=== PATIENT | male | born 1980 | race Caucasian/White ===

== ENCOUNTER 2024-11-19 19:01 | Emergency (ER) | payer MEDICAID ==
[~2024-11-19] VITALS: Ht 154.9 cm; Wt 80.9 kg
[2024-11-19] MEDS ORDERED: NALO4SPR BOTHNARES (21:59)
--- NOTE | 2024-11-19 22:03 | Physician Documentation ---
History of Present Illness ~ Chief Complaint: Ingestion Error Stated Complaint: LOOSE STOOLS Time Seen by MD: 21:58 Source: patient Mode of Arrival: Ambulatory Exam Limitations: no limitations HPI Nicholas is a 44-year-old male presenting to our emergency department with complaints of receiving fentanyl last night and someone poisoning him with some rubber cement, super glue and hydrogen peroxide. He reports to being homeless and is wanting to attend rehab and seeking medical clearance. He has no physical medical complaints. Denies HI and SI. He is also a risk for requesting some Narcan to take home. Medication Reconciliation Allergies: Coded Allergies: No Known Allergies (Unverified , 11/19/24) Scheduled PRN Naloxone HCl (Narcan), 1 SPRAYS BOTHNARES ONCE PRN for sedation Review of Systems All Other Systems at this time: Reviewed and Negative Physical Exam Vital Signs: RN Vital Signs have been reviewed: Yes, Temperature: 98.6, Source: Temporal, Heart Rate: 62, Respiratory Rate: 12, BP: 120/80, Pulse Oximetry: 96, Weight: 80.900 Oxygen Flow Rate: 0 Pulse Oximetry Reflects: adequate oxygenation Physical Exam General: Alert, no apparent distress. HEENT: PERRL, EOMI, no injection, moist mucous membranes. Neck: Full range of motion. Respiratory: Lungs clear, no respiratory distress. Chest: No accessory muscle use. Cardiovascular: Regular rate and rhythm, no murmurs. Gastrointestinal: Soft, nontender, nondistended. Bowels sounds present. Extremities: Normal range of motion, no deformity. Neurologic: Oriented x4. Psychiatric: Normal mood and affect. Skin: Normal color, warm and dry. No edema, no ecchymosis. Progress Results/Orders Reviewed/noted all lab results: Yes Results/Orders Vital Signs 11/19/24 11/19/24 11/19/24 11/19/24 19:31 19:51 20:40 22:07 Temp 98.6 98.6 Pulse 81 62 72 Resp 16 10 12 10 B/P (MAP) 124/75 120/80 (93) 126/74 Pulse Ox 98 96 96 O2 Flow Rate 0 Medical Decision Making Findings Nicholas is a 44-year-old male who received some fentanyl last night and possible other substances early this morning. He is currently homeless and is requesting rehab services and medical clearance. He denies any HI or SI. He is also requesting some Narcan to take with him and this was provided. Gave prescription for Narcan as well as 2 intranasal bottles to take home tonight. Advised to avoid all illicit substances including fentanyl. Given community services paper with rehab information on it for him to contact them in the morning. He agrees with this plan. He should follow up with his primary care provider or the [facility] in the next 3 days. He should return back here for any new or worsening symptoms. Differential Dx:Considerations: Include: Anxiety, Depression, Drug Overdose- Intentional Departure Disposition: 01 HOME / SELF CARE / HOMELESS Impression: Primary Impression: Poisoning by opiate or related narcotic Additional Impression: Addiction to drug Condition: Stable Discharge Instructions: Opioid Overdose Additional Instructions: Please refrain from using fentanyl or other illicit substances. We provided you with two nasal bottles of Narcan to use in the case of an opiate overdose. Also written a prescription to your pharmacy for Narcan as well. You have been medically cleared to attend any rehab program. Community resource sheet has been provided with you as well with names and phone numbers and addresses of local rehab programs. Return here for any new worsening symptoms. Follow up with your primary care provider in the next 3 days. Referrals: NO PRIMARY CARE PROVIDER (PCP) Prescriptions Naloxone HCl (Narcan) 4 Mg/Actuation [place] 1 SPRAYS BOTHNARES ONCE PRN for sedation for 1 Day, #3 EA 0 Refills Prov: TOBIN JIMÉNEZ 11/19/24 Education Educated: Patient Educated regarding: diagnosis, treatment, prognosis, need for follow up Signature Scribe Signature: . Attestation: Scribed for Tobin Jiménez by Tobin Maguire NP . 11/20/24 01:20 TOBIN JIMÉNEZ November 19, 2024 22:03
[2024-11-19 22:07] VITALS: BP 126/74; PULSE 72; RESP 10; TEMP 98.6; O2SAT 96
== END 2024-11-19 22:13 | disposition home or self-care (01) ==
LOC: ER 19:02
DX: T40.601A Poisoning by unspecified narcotics, accidental (unintentional), initial encounter (principal); F11.20 Opioid dependence, uncomplicated; Z59.00 Homelessness unspecified; Y92.89 Other specified places as the place of occurrence of the external cause
CPT/HCPCS: 99284

== ENCOUNTER 2024-11-23 19:43 | Emergency (ER) | payer MEDICAID ==
[~2024-11-23] VITALS: Ht 167.6 cm; Wt 65.0 kg
[~2024-11-23 19:43] MED LIST: NALO4SPR BOTHNARES
[2024-11-23 19:56] VITALS: TEMP 98.6
--- NOTE | 2024-11-23 21:46 | Physician Documentation ---
History of Present Illness ~ Chief Complaint: Psych Stated Complaint: EVAL Time Seen by MD: 21:45 HPI Patient presents to the emergency room for evaluation of depression. Denies SI however he is feeling in his wits end. He was seen here a few days ago was given paperwork regarding psychiatric resources and he states he did try to contact them but states there was nothing they could do. Medication Reconciliation Allergies: Coded Allergies: No Known Allergies (Unverified , 11/23/24) Scheduled PRN Naloxone HCl (Narcan), 1 SPRAYS BOTHNARES ONCE PRN for sedation Review of Systems ROS All review of systems negative except as per HPI Physical Exam Vital Signs: Temperature: 98.6, Source: Temporal, Heart Rate: 98, Respiratory Rate: 15, BP: 157/92, Pulse Oximetry: 99, Weight: 65.000 Physical Exam General: Patient is sleeping, easily arousable, decreased affect. Cooperative Head: Normocephalic and atraumatic. Eyes: Conjunctival normal. EOMI. PERRL. ENT: Mucous membranes moist. Neck: Supple, trachea is midline. Chest: Clear to auscultation bilaterally without rales, rhonchi, or wheezes. There is no accessory muscle use or retractions. Cardiac: RRR without murmurs, gallops, or rubs. Psych: Decreased affect, poor eye contact, dejected Progress Results/Orders Results/Orders Orders - MARK BARBOSA MD Urinalysis (11/23/24 21:58) Drug Screen, Urine (11/23/24 21:58) Med Rec (11/23/24 21:58) 1799.11 (11/23/24 21:58) Close Observation Level (11/23/24 21:58) Covid19 Binax Poc Result Entry (11/23/24 21:58) Substance Use Navigator (11/23/24 21:58) Regular Diet (11/24/24 Breakfast) Completed Orders - MARK BARBOSA MD Cbc/Diff (11/23/24 21:58) Ethanol (11/23/24 21:58) TSH (11/23/24 21:58) BMP (11/23/24 21:58) Vital Signs 11/23/24 19:56 Temp 98.6 Pulse 98 Resp 15 B/P (MAP) 157/92 Pulse Ox 99 Laboratory Tests Test 11/23/24 22:05 White Blood Count 9.0 Red Blood Count 4.76 Hemoglobin 13.5 L Hematocrit 40.0 L Mean Corpuscular Volume 84.0 Mean Corpuscular Hemoglobin 28.2 Mean Corpuscular Hemoglobin Concent 33.6 Red Cell Distribution Width 14.8 H Platelet Count 364 Mean Platelet Volume 7.4 Neutrophils (%) (Auto) 47.0 Lymphocytes (%) (Auto) 38.5 Monocytes (%) (Auto) 10.6 Eosinophils (%) (Auto) 3.5 Basophils (%) (Auto) 0.4 Neutrophils # (Auto) 4.2 Lymphocytes # (Auto) 3.5 Monocytes # (Auto) 1.0 H Eosinophils # (Auto) 0.3 Basophils # (Auto) 0.0 CBC Comment Sodium Level 145 Potassium Level 3.7 Chloride Level 109 H Carbon Dioxide Level 29.9 Anion Gap 6 L Blood Urea Nitrogen 19 H Creatinine 1.17 H Estimated GFR/1.73 m2 68 BUN/Creatinine Ratio 16.2 Glucose Level 109 H Calcium Level 8.6 Albumin 3.2 L Thyroid Stimulating Hormone (TSH) 1.99 Chemistry Comments Ethyl Alcohol Level < 10 Medical Decision Making Findings Patient presents to the emergency room with depression as per HPI. Differentials include but are not limited to suicidal ideation, depression, electrolyte disturbances, thyroid disorder therefore emergent labs ordered which were reassuring and patient is medically cleared for mental health evaluation. Departure Disposition: 30 STILL A PATIENT Impression: Primary Impression: Gravely disabled Additional Impression: Depression Condition: Fair Referrals: NO PRIMARY CARE PROVIDER (PCP) Signature Scribe Signature: No scribe Attestation: The note accurately reflects work and decisions made by me.Mark Barbosa MD 11/23/24 23:13 MARK BARBOSA MD November 23, 2024 21:46
[2024-11-23 22:19] LABS: BASOPHILS % (AUTO) 0.4 % (0-1); EOSINOPHILS # (AUTO) 0.3 X10'3 (0-0.9); EOSINOPHILS % (AUTO) 3.5 % (0-6); HEMOGLOBIN 13.5 g/dl (14.0-17.9); LYMPHOCYTES # (AUTO) 3.5 X10'3 (1.1-4.8); LYMPHOCYTES % (AUTO) 38.5 % (21-51); MEAN CORPUSCULAR HEMOGLOBIN 28.2 PG (27.0-31.0); MEAN CORPUSCULAR HGB CONC 33.6 g/dL (33.0-36.5); MEAN PLATELET VOLUME 7.4 FL (7.4-10.4); MONOCYTES % (AUTO) 10.6 % (2-12); NEUTROPHILS # (AUTO) 4.2 X10'3 (1.8-7.7); PLATELET COUNT 364 X10'3 (140-440); RED BLOOD COUNT 4.76 X10'6 (4.70-6.10); RED CELL DISTRIBUTION WIDTH 14.8 % (11.5-14.5)
[2024-11-23 22:41] LABS: ALBUMIN 3.2 G/DL (3.4-5.0); ANION GAP 6 (8-16); BLOOD UREA NITROGEN 19 MG/DL (7-18); BUN/CREATININE RATIO 16.2 (10.0-20.0); CALCIUM 8.6 MG/DL (8.5-10.1); CHLORIDE 109 MMOL/L (99-107); CREATININE 1.17 MG/DL (0.60-1.10); ETHANOL < 10 MG/DL (<10); GLUCOSE 109 MG/DL (70-104); POTASSIUM 3.7 MMOL/L (3.5-5.1); SODIUM 145 MMOL/L (135-145); THYROID STIMULATING HORMONE 1.99 ulU/ml (0.34-4.50); TOTAL CARBON DIOXIDE 29.9 MMOL/L (24-32); eCRCL 73 ML/MIN; eGFR 68 ML/MIN
[2024-11-24 03:06] VITALS: BP 110/65; PULSE 64; O2SAT 99
[2024-11-24 04:47] VITALS: RESP 14
[2024-11-24 08:44] LABS: BILIRUBIN,URINE NEGATIVE (Neg); CLARITY,URINE CLEAR (Clear); COLOR,URINE YELLOW (Yellow); GLUCOSE, URINE NEGATIVE (Neg); KETONES,URINE NEGATIVE (Neg); LEUKOCYTE ESTERASE ,URINE NEGATIVE (Neg); NITRITES, URINE NEGATIVE (Neg); OCCULT BLOOD,URINE NEGATIVE (Neg); PROTEIN,URINE NEGATIVE (Neg); UA COLLECTION TYPE CLN CATCH MIDSTREAM; UROBILINOGEN,URINE 0.2 E.U/dL (0.2-1.0)
[2024-11-24 08:56] LABS: URINE AMPHETAMINE SCREEN POSITIVE (Neg); URINE BARBITUATE SCREEN NEGATIVE (Neg); URINE BENZODIAZEPINES SCREEN NEGATIVE (Neg); URINE CANNABINOID SCREEN POSITIVE (Neg); URINE COCAINE SCREEN NEGATIVE (Neg); URINE METHADONE SCREEN NEGATIVE (Neg); URINE OPIATE SCREEN NEGATIVE (Neg); URINE PHENCYCLIDINE SCREEN NEGATIVE (Neg)
== END 2024-11-24 18:44 | disposition home or self-care (01) ==
LOC: ER 19:45
DX: F32.A Depression, unspecified (principal); F79 Unspecified intellectual disabilities; Z20.822 Contact with and (suspected) exposure to COVID-19; Z79.899 Other long term (current) drug therapy
CPT/HCPCS: 36415; 80048; 80305; 80320; 81003; 84443; 85025; 87811; 99284

== ENCOUNTER 2024-12-10 17:32 | Emergency (ER) | payer MEDICAID ==
[~2024-12-10] VITALS: Ht 165.1 cm; Wt 93.0 kg
--- NOTE | 2024-12-10 17:39 | Physician Documentation ---
History of Present Illness ~ Stated Complaint: HEAT EXHAUSTION Time Seen by MD: 18:11 OK to notify your PCP?: Yes Source: patient Mode of Arrival: POV Exam Limitations: no limitations HPI 44-year-old male brought in by EMS for possible heat exhaustion after walking from the homeless retirement called admission to our [facility] in 100 degree Fahrenheit heat. He reports having nausea and was given 8 mg p.o. Zofran and ice water by EMS. He reports relief from his nausea after the Zofran administration. Additional note by Tom Henson DO: I took over the care of this patient from previous physician. I reviewed any previous notes available, obtain my own history, review of systems and physical examination was performed by myself. As noted above, the gentleman confirms the story. He is 44 years of age, currently homeless, he walked from the homeless retirement to [place] and back. That he was exposed to elements and the mother today had a T- max of 107. He did not drink any fluids. He denies using meth to which he specifically alludes. He reports feeling nauseous, which markedly improved with the administration of Zofran by EMS. He reports feeling thirsty and exhausted. Denies any other concerns. Medication Reconciliation Allergies: Coded Allergies: codeine (Verified Allergy, Unknown, 12/10/24) Scheduled PRN Naloxone HCl (Narcan), 1 SPRAYS BOTHNARES ONCE PRN for sedation Review of Systems All Other Systems at this time: Reviewed and Negative ROS 10 point review of systems was performed and unless noted above in HPI is negative for acute process/complaint. Physical Exam Physical Exam Physical examination: GENERAL: Awake, alert, oriented, GCS 15, no apparent distress, non-toxic appearing, answers questions, follows commands appropriately. Obvious stigmata of homelessness. Initial examined in bed 19., placed in bed 12. HEENT: Atraumatic, normocephalic, pupils equal, extraocular muscles intact Active gross movements, sclerae anicteric, mucus membranes moist, no stridor. NECK: Midline, no JVD CARDIOVASCULAR: Good skin perfusion without evidence of pallor, mottling. PULMONARY: Nonlabored, symmetric chest rise, no audible wheezing, no accessory muscle use, no respiratory distress, speaking in full sentences. GASTROINTESTINAL: Not distended. NEUROLOGIC: Lucid with normal mental status. Normal facial symmetry. Moves all extremities symmetrically and with purpose. No truncal ataxia. Speech is fluid without evidence of dysarthria or aphasia, no focal deficits appreciated. EXTREMITIES: Acute deformities Skin: warm, dry PSYCHIATRIC: Normal affect, normal insight, normal concentration. Focused exam: [] Progress Results/Orders Results/Orders Completed Orders - TOM HENSON DO Cbc/Diff (12/10/24 18:45) MG (12/10/24 18:45) CMP (12/10/24 18:45) Vital Signs 12/10/24 17:33 Temp 98.7 Pulse 92 Resp 16 B/P (MAP) 111/77 Pulse Ox 99 O2 Flow Rate 0 Laboratory Tests Test 12/10/24 19:16 White Blood Count 7.6 Red Blood Count 4.58 L Hemoglobin 13.0 L Hematocrit 39.0 L Mean Corpuscular Volume 85.1 Mean Corpuscular Hemoglobin 28.4 Mean Corpuscular Hemoglobin Concent 33.4 Red Cell Distribution Width 15.1 H Platelet Count 321 Mean Platelet Volume 7.6 Neutrophils (%) (Auto) 45.0 Lymphocytes (%) (Auto) 40.2 Monocytes (%) (Auto) 11.8 Eosinophils (%) (Auto) 2.5 Basophils (%) (Auto) 0.5 Neutrophils # (Auto) 3.4 Lymphocytes # (Auto) 3.1 Monocytes # (Auto) 0.9 Eosinophils # (Auto) 0.2 Basophils # (Auto) 0.0 CBC Comment Sodium Level 142 Potassium Level 4.1 Chloride Level 107 Carbon Dioxide Level 26.3 Anion Gap 9 Blood Urea Nitrogen 26 H Creatinine 1.09 Estimated GFR/1.73 m2 74 BUN/Creatinine Ratio 23.9 H Glucose Level 111 H Calcium Level 8.6 Magnesium Level 1.8 Total Bilirubin 0.2 Aspartate Amino Transf (AST/SGOT) 18 Alanine Aminotransferase (ALT/SGPT) 22 Alkaline Phosphatase 126 H Total Protein 6.6 Albumin 3.4 Globulin 3.2 Albumin/Globulin Ratio 1.1 Chemistry Comments Medical Decision Making Findings Facility Status: ED Holds, RME process The plan was discussed with the patient, who demonstrates clear understanding of the plan and is in agreement with the plan unless otherwise noted in the chart. All questions have been answered, all concerns were addressed unless otherwise documented. I was available throughout their ED stay for frequent reassessment and questions. Differential Diagnoses (considered and possible or likely): [Dehydration, electrolyte derangement, hit exertion, clinically not consistent with heat stro ke] ??Differential Diagnoses (considered and unlikely, not requiring evaluation currently): [No other somatic complaints] MDM Data Please see HPI for the following: Independent Historians and external Records Review. Historian: [Patient] Independent Historians: ?[Record review] Medication Management: [Reviewed medication list] Social History and determinants: [Reviewed] Please see the body of the note for the following: Any independent interpretations of ECG, imaging studies. All vitals signs/haemodynamics, ordered tests were independently reviewed and interpreted by myself. Nursing triage complaint and vitals reviewed, additional nursing notes were reviewed as available and I agree unless otherwise noted or documented in contradiction in the chart Vital Signs: Independently reviewed Labs: Independently interpreted Imaging: Independently interpreted Old Medical Records: Independently reviewed, see [facility] for relevant summary and information Pulse Oximetry: [100%] interpreted as [normal on room air] by me [Metal [employer] Blocker: [Regular Rate, Regular rhythm, no ectopy, NSR] reviewed and interpreted by me] Additionally notably showing: [He is not tachycardic, he is hemodynamically stable.] CBC and CMP notable for dehydration. No electrolyte derangement. Tests considered but not ordered include: [Hematologic workup and imaging has been considered but does not appear to be necessary given clinical nature of diagnosis] Social Determinants of Health Impact: Patient was evaluated in [facility], [facility] [place] access to healthcare due to below par ratio of patient to medical providers. [] Comorbid Conditions Impacting Present Evaluation and Care/Treatment: [Homelessness, methamphetamine abuse] Management Discussions with other Healthcare Providers: [None] Treatment and Disposition Medication Management (Given or considered): [Oral rehydration]. See EMR for details Consideration for Hospitalization/Escalation/Deescalation of Care: Admission for observation has been considered, [however the patient is able to tolerate p.o., their symptoms are controlled, they are able to rely on oral medications, and their chief complaint/diagnosis can be managed on outpatient basis.] ?ED Course:?[No clinical deterioration.] ?Shared decision making:?[Patient is hemodynamically stable for discharge home with follow with their primary care provider. [ ] Specific and cautious return precautions provided and discussed with full understanding. Any incidental findings were also discussed and follow up recommendations given. [] All questions answered. Patient/family were able to verbalize back return precautions. Patient/family agree to plan. Copies of imaging and laboratory studies were provided.] Code status:?FULL Please see the full Electronic Medical Record for full details of nursing doc umentation, medications list, other records of complete past medical history and conditions, vital signs, laboratory studies, and any radiologic study interpretations by radiologists. Portions of this note were completed using Patient Home Monitoring dictation software and as a result there may exist minor errors in spelling. I have reviewed elements of past family and social history and agree as included in note. Departure Disposition: HOME / SELF CARE / HOMELESS Impression: Primary Impression: Heat exhaustion Additional Impressions: Dehydration Homelessness Condition: Improved Discharge Instructions: Heat Illness Referrals: NO PRIMARY CARE PROVIDER (PCP) Education Educated: Patient Educated regarding: diagnosis, treatment, prognosis, need for follow up Additional Comment Medical Screen Exam This patient recieved a medical screening examination. After reviewing the individual's medical complaints with presenting symptoms and performing an appropriate physical examination, it was determined that no emergency medical condition is present. This individual is also not a women having contractions. Signature Scribe Signature: No scribe Attestation: This note accurately reflects clinical decisions, work performed by myself, DO VIKRAM Park ASHLEY D [facility] December 10, 2024 17:38 TOM HENSON DO December 10, 2024 18:46
[2024-12-10 19:34] LABS: BASOPHILS % (AUTO) 0.5 % (0-1); EOSINOPHILS # (AUTO) 0.2 X10'3 (0-0.9); EOSINOPHILS % (AUTO) 2.5 % (0-6); LYMPHOCYTES # (AUTO) 3.1 X10'3 (1.1-4.8); LYMPHOCYTES % (AUTO) 40.2 % (21-51); MEAN CORPUSCULAR HEMOGLOBIN 28.4 PG (27.0-31.0); MEAN CORPUSCULAR HGB CONC 33.4 g/dL (33.0-36.5); MEAN CORPUSCULAR VOLUME 85.1 FL (78-98); MEAN PLATELET VOLUME 7.6 FL (7.4-10.4); MONOCYTES # (AUTO) 0.9 X10'3 (0-0.9); MONOCYTES % (AUTO) 11.8 % (2-12); NEUTROPHILS # (AUTO) 3.4 X10'3 (1.8-7.7); PLATELET COUNT 321 X10'3 (140-440); RED BLOOD COUNT 4.58 X10'6 (4.70-6.10); RED CELL DISTRIBUTION WIDTH 15.1 % (11.5-14.5); WHITE BLOOD COUNT 7.6 X10'3 (4.5-11.0)
[2024-12-10 19:50] LABS: ALANINE AMINOTRANSFERASE 22 U/L (12-78); ALBUMIN 3.4 G/DL (3.4-5.0); ALBUMIN/GLOBULIN RATIO 1.1 (1.1-1.5); ALKALINE PHOSPHATASE 126 IU/L (46-116); ANION GAP 9 (8-16); ASPARTATE AMINO TRANSFERASE 18 U/L (10-37); BILIRUBIN,TOTAL 0.2 MG/DL (0.1-1.0); BLOOD UREA NITROGEN 26 MG/DL (7-18); BUN/CREATININE RATIO 23.9 (10.0-20.0); CALCIUM 8.6 MG/DL (8.5-10.1); CHLORIDE 107 MMOL/L (99-107); CREATININE 1.09 MG/DL (0.60-1.10); GLUCOSE 111 MG/DL (70-104); MAGNESIUM 1.8 MG/DL (1.5-2.4); POTASSIUM 4.1 MMOL/L (3.5-5.1); SODIUM 142 MMOL/L (135-145); TOTAL CARBON DIOXIDE 26.3 MMOL/L (24-32); TOTAL PROTEIN 6.6 G/DL (6.4-8.2); eCRCL 76 ML/MIN; eGFR 74 ML/MIN
[2024-12-10 21:23] VITALS: BP 116/70; PULSE 87; RESP 16; TEMP 98.7; O2SAT 99
== END 2024-12-10 21:28 | disposition home or self-care (01) ==
LOC: ER 17:32
DX: T67.5XXA Heat exhaustion, unspecified, initial encounter (principal); E86.0 Dehydration; Z59.01 Sheltered homelessness; Z88.5 Allergy status to narcotic agent; Z79.899 Other long term (current) drug therapy; X30.XXXA Exposure to excessive natural heat, initial encounter; Y93.01 Activity, walking, marching and hiking; Y92.488 Other paved roadways as the place of occurrence of the external cause; Y99.8 Other external cause status
CPT/HCPCS: 36415; 80053; 83735; 85025; 99283

== ENCOUNTER 2025-01-01 07:14 | Emergency (ER) | payer MEDICAID ==
[~2025-01-01] VITALS: Ht 165.1 cm; Wt 88.6 kg
[2025-01-01 07:16] VITALS: BP 138/79; PULSE 56; O2SAT 100
[2025-01-01 07:28] VITALS: RESP 16
[2025-01-01] MEDS ORDERED: predniSONE 20 mg tablet PO ONE (07:40)
--- NOTE | 2025-01-01 07:42 | Physician Documentation ---
History of Present Illness ~ Chief Complaint: Shortness of Breath Stated Complaint: SOB, FOOT PAIN Time Seen by MD: 07:39 OK to notify your PCP?: Yes Primary Medical Doctor: NO PCP Mode of Arrival: EMS HPI 44-year-old male presenting with shortness of breath that started earlier today. He states that he is homeless and woke up this morning and he was slightly short of breath and was hyperventilating. He was walking on the side of the road and EMS was called because he was very short of breath. He states that he has a history of asthma and has been out of his inhaler. Additionally he states that his left foot has been hurting as he has been walking a lot. The patient has a history of a fracture in his left foot many years ago and he is not sure if it is broken once again. Denies any specific trauma. No other complaints. Medication Reconciliation Allergies: Coded Allergies: codeine (Verified Allergy, Unknown, 12/10/24) Scheduled PRN Naloxone HCl (Narcan), 1 SPRAYS BOTHNARES ONCE PRN for sedation Review of Systems All Other Systems at this time: Reviewed and Negative Physical Exam Vital Signs: Temperature: 97.5, Source: Oral, Heart Rate: 56, Respiratory Rate: 16, BP: 138/79, Pulse Oximetry: 100, Weight: 88.640 Oxygen Flow Rate: 0 Physical Exam I have reviewed the triage vitals. CONST: Well developed and well nourished. In no acute distress HENT: Head Atraumatic EYES: Pupils are equal, round and reactive to light. Normal conjunctiva NECK: Normal range of motion. Supple. CARDIO: Normal rate and regular rhythm. No murmurs, rubs, or gallops. S1, S2. PULM/CHEST: No respiratory distress. Lungs clear to auscultation. No wheeze ABD: Soft and nontender. Nondistended. Bowel sounds normal. No guarding. : Exam deferred MSK: No edema. No deformity. Left foot with normal appearance. There is slight tenderness to palpation over the 4th and 5th metatarsals distally. Normal weight-bearing, normal range of motion. NEURO: Alert and oriented to person, place and time. Moving all extremities SKIN: Warm and dry. PSYCH: Normal mood and affect. Good eye contact. Progress Results/Orders Results/Orders Orders - BROOK LICONA MD Foot, Complete (3vw Min) (01/01/25 07:40) Chest,Single View (01/01/25 07:43) Completed Orders - BROOK LICONA MD Prednisone Tablet (Prednisone Tablet) (01/01/25 07:40) Vital Signs 01/01/25 01/01/25 01/01/25 07:15 07:16 07:28 Temp 97.5 97.5 Pulse 74 56 Resp 16 16 16 B/P (MAP) 128/96 138/79 (98) Pulse Ox 97 100 O2 Flow Rate 0 0 Medical Decision Making Additional Infomation 44-year-old male presenting with a mild asthma exacerbation. His vitals are normal. He looks clinically well. His exam is normal with no wheezing auscultated. He also has left foot pain for which we offered a x-ray of his left foot. I also recommended a chest x-ray but the patient declined. He states that he just needs a refill of his albuterol. I did give him a refill of his albuterol. I also did have for him a five day course of prednisone for his exacerbation. Advised the patient to take the medication as prescribed. Follow up with primary care in the next week and return to the ED with any acutely worsening symptoms. Departure Disposition: 01 HOME / SELF CARE / HOMELESS Impression: Primary Impression: Asthma Additional Impression: Asthma exacerbation Discharge Instructions: Asthma, Adult, [id number] Referrals: NO PRIMARY CARE PROVIDER (PCP) Prescriptions Prednisone* (Prednisone*) 20 Mg Tablet 2 TAB PO DAILY for 5 Days, #10 TAB Prov: BROOK LICONA MD 01/01/25 albuterol inhaler (Pro-Air Inhaler) 8.5 Gm Inhaler 2 PUFFS INH Q4HPRN PRN for wheezing for 30 Days, #18 GM 3 Refills Prov: BROOK LICONA MD 01/01/25 Signature Scribe Signature: 1 Attestation: 1 BROOK LICONA MD Jan 01, 2025 07:42
[2025-01-01] MEDS ORDERED: PRED20TA PO (07:52)
[2025-01-01] MEDS ORDERED: ALBU8HFA INH (07:52)
[2025-01-01 07:57] VITALS: TEMP 97.5
--- NOTE | 2025-01-01 10:17 | ELECTROCARDIOGRAPH REPORT ---
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
== END 2025-01-01 08:00 | disposition home or self-care (01) ==
LOC: ER 07:14
DX: J45.901 Unspecified asthma with (acute) exacerbation (principal); Z88.5 Allergy status to narcotic agent
CPT/HCPCS: 93005; 99283